=== PATIENT | male | born 1980 | race Caucasian/White ===

== ENCOUNTER 2019-11-03 13:59 | Emergency (ER) | payer MEDICAID ==
[~2019-11-03] VITALS: Ht 175.3 cm; Wt 72.7 kg
[2019-11-03] MEDS ORDERED: LEVE500T53 PO (14:15)
[2019-11-03 14:23] LABS: GLUCOSE,POINT OF CARE 100 MG/DL (70-110)
[2019-11-03 18:52] VITALS: BP 120/67
== END 2019-11-03 19:18 | disposition home or self-care (01) ==
LOC: EMS 14:00
DX: F10.129 Alcohol abuse with intoxication, unspecified (principal); F17.210 Nicotine dependence, cigarettes, uncomplicated; F12.90 Cannabis use, unspecified, uncomplicated